=== PATIENT | male | born 1995 | race African-American/Black ===

== ENCOUNTER 2017-03-16 17:30 | Emergency (ER) | payer BC ==
[2017-03-16 18:03] LABS: Hematocrit 35 % (42-52); Hemoglobin 11.5 g/dl (14.0-18.0); Mean Corpuscular HGB Conc 33 g/dl (31-36); Mean Corpuscular Hemoglobin 29 pg (27-31); Mean Corpuscular Volume 88 fL (80-94); Mean Platelet Volume 8 um3 (7.4-10.4); Red Blood Count 3.97 10^6/ul (4.0-5.4); Red Cell Distribution Width 21 % (10.5-15)
[2017-03-16 18:05] LABS: Add Diff/Slide Review? Slide Review Added; Comments Flag Yes
[2017-03-16 18:09] LABS: Urine Bilirubin Negative (Negative); Urine Glucose Negative (Negative); Urine Nitrite Negative (Negative)
[2017-03-16 18:12] LABS: ALT 17 U/L (7-52); Albumin 4.7 g/dL (3.2-5.2); Alkaline Phosphatase 90 U/L (34-104); Blood Urea Nitrogen 14 mg/dL (6-24); CO2 Carbon Dioxide 25 mmol/L (22-32); Calcium 9.8 mg/dL (8.6-10.3); Chloride 100 mmol/L (101-111); EGFR Non-African American 84.7 (>60); Globulin 3.7 g/dL (2-4); Glucose 113 mg/dL (70-100); Sodium 133 mmol/L (133-145); Total Protein 8.4 g/dL (6.4-8.9)
[2017-03-16 18:16] LABS: AST 30 U/L (13-39); Anion Gap 8 mmol/L (2-11)
[2017-03-16 18:23] LABS: Benzodiazepine Urine Screen None Detected (None Detect)
[2017-03-16 18:37] LABS: Acetaminophen < 15 mcg/mL; Alcohol < 10 mg/dL (<10); Salicylate < 2.50 mg/dL (<30)
[2017-03-16 18:47] LABS: TSH (Thyroid Stimulating Horm) 1.45 mcIU/mL (0.34-5.60)
[2017-03-16] MEDS ORDERED: LORazepam TAB(*) 1 MG PO ONE (20:47)
[2017-03-16] MEDS ORDERED: LORazepam TAB(*) 1 MG ONE (20:49)
[2017-03-16 23:17] VITALS: BP 142/67
--- NOTE | 2017-03-16 23:18 | ED ---
Progress - Progress Note Progress Note: pt evaluated by mental health and discharged back to [facility] in stable condition - Consult/PCP Time Called: 20:50 Course/Dx - Diagnoses Provider Diagnoses: Suicidal ideation, Anxiety
--- NOTE | 2017-03-17 08:55 | ED ---
Edelmira Fu Alok, scribed for Nestor Ardon MD on 03/16/17 at 1745 . Psychiatric Complaint - HPI Summary HPI Summary: 21M presents to the ED for MHU evaluation. 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 Pt states these new guidelines are full of unrealistic expectations and he has been continually reprimanded as of late for insignificant infractions which are both increasing his anxiety/depression and his desire to give up on recovery and start using again. Pt states that this recent stress has been making him want to suffocate himself with a plastic bag which he has tried in the past. Pt has h/o depression and anxiety as well as bipolarism. Pt is a former tobacco smoker. Pt currently takes suboxone. - History Of Current Complaint Chief Complaint: EDMentalHealth Time Seen by Provider: 03/16/17 17:35 Hx Obtained From: Patient Onset/Duration: Lasting Days, Still Present Timing: Constant Severity Initially: Moderate Severity Currently: Moderate Character: Depressed, Anxious Aggravating Factor(s): Recent Stress Related History: Positive For: Drug Abuse Counseling Has Suicidal: Reports: Thoughts, With A Plan, Has Prior Attempt(s) Recent Stressor(s): New guildlines at [employer] with unrealistic expectations - Allergies/Home Medications Allergies/Adverse Reactions: Allergies Allergy/AdvReac Type Severity Reaction Status Date / Time No Known Allergies Allergy Verified 03/16/17 17:42 PMH/Surg Hx/FS Hx/Imm Hx Endocrine/Hematology History: Denies: Hx Diabetes Cardiovascular History: Denies: Hx Hypertension Psychiatric History: Reports: Hx Anxiety, Hx Depression, Hx Bipolar Disorder - Family History Known Family History: Negative: Cardiac Disease, Hypertension, Diabetes - Social History Alcohol Use: None Hx Substance Use: Yes Substance Use Type: Reports: Heroin Hx Tobacco Use: Yes Smoking Status (MU): Former Smoker Type: Cigarettes Do You Chew or Dip Tobacco: No Have You Chewed or Dipped Tobacco in the LAST YEAR: No Review of Systems Negative: Fever Positive: Anxious, Depressed All Other Systems Reviewed And Are Negative: Yes Physical Exam - Summary Physical Exam Summary: VITAL SIGNS: Reviewed. GENERAL: Patient is a well-developed and nourished (MALE OR FEMALE) who is lying comfortable in the stretcher. Patient is not in any acute respiratory distress. HEAD AND FACE: No signs of trauma. No ecchymosis, hematomas or skull depressions. No sinus tenderness. EYES: PERRLA, EOMI x 2, No injected conjunctiva, no nystagmus. EARS: Hearing grossly intact. Ear canals and tympanic membranes are within normal limits. MOUTH: Oropharynx within normal limits. NECK: Supple, trachea is midline, no adenopathy, no JVD, no carotid bruit, no c- spine tenderness, neck with full ROM. CHEST: Symmetric, no tenderness at palpation LUNGS: Clear to auscultation bilaterally. No wheezing or crackles. CVS: Regular rate and rhythm, S1 and S2 present, no murmurs or gallops appreciated. ABDOMEN: Soft, non-tender. No signs of distention. No rebound no guarding, and no masses palpated. Bowel sounds are normal. EXTREMITIES: FROM in all major joints, no edema, no cyanosis or clubbing. NEURO: Alert and oriented x 3. No acute neurological deficits. Speech is normal and follows commands. SKIN: Dry and warm PSYCH: Depressed, quiet. Positive for suicidal thoughts with a plan. No homicidal thoughts or plan. No signs of psychosis or pressure speech. No tangential speech. Triage Information Reviewed: Yes Vital Signs On Initial Exam: Initial Vital Signs Temp 98.0 F 03/16/17 17:32 Pulse 90 03/16/17 17:32 Resp 16 03/16/17 17:32 BP 101/45 03/16/17 17:32 Pulse Ox 100 03/16/17 17:32 Vital Signs Reviewed: Yes Diagnostics - Vital Signs Vital Signs Temp Pulse Resp BP Pulse Ox 03/16/17 23:15 98.0 F 74 16 142/67 03/16/17 20:51 19 03/16/17 17:32 98.0 F 90 16 107/57 100 - Laboratory Lab Results: Lab Results 03/16/17 03/16/17 03/16/17 Range/Units 17:40 17:40 18:00 WBC 5.0 (3.5-10.8) 10^3/ul RBC 3.97 L (4.0-5.4) 10^6/ul Hgb 11.5 L (14.0-18.0) g/dl Hct 35 L (42-52) % MCV 88 (80-94) fL MCH 29 (27-31) pg MCHC 33 (31-36) g/dl RDW 21 H (10.5-15) % Plt Count 266 (150-450) 10^3/ul MPV 8 (7.4-10.4) um3 Neut % (Auto) 28.5 L (38-83) % Lymph % (Auto) 54.7 H (25-47) % [place] % (Auto) 11.9 H (1-9) % Eos % (Auto) 3.6 (0-6) % Baso % (Auto) 1.3 (0-2) % Absolute Neuts (auto) 1.4 L (1.5-7.7) 10^3/ul Absolute Lymphs (auto) 2.7 (1.0-4.8) 10^3/ul Absolute Monos (auto) 0.6 (0-0.8) 10^3/ul Absolute Eos (auto) 0.2 (0-0.6) 10^3/ul Absolute Basos (auto) 0.1 (0-0.2) 10^3/ul Absolute Nucleated RBC 0.01 10^3/ul Nucleated RBC % 0.2 Sodium 133 (133-145) mmol/L Potassium 4.0 (3.5-5.0) mmol/L Chloride 100 L (101-111) mmol/L Carbon Dioxide 25 (22-32) mmol/L Anion Gap 8 (2-11) mmol/L BUN 14 (6-24) mg/dL Creatinine 1.08 (0.67-1.17) mg/dL Est GFR ( Amer) 109.0 (>60) Est GFR (Non-Af Amer) 84.7 (>60) BUN/Creatinine Ratio 13.0 (8-20) Glucose 113 H (70-100) mg/dL Calcium 9.8 (8.6-10.3) mg/dL Total Bilirubin 0.40 (0.2-1.0) mg/dL AST 30 (13-39) U/L ALT 17 (7-52) U/L Alkaline Phosphatase 90 (34-104) U/L Total Protein 8.4 (6.4-8.9) g/dL Albumin 4.7 (3.2-5.2) g/dL Globulin 3.7 (2-4) g/dL Albumin/Globulin Ratio 1.3 (1-3) TSH 1.45 (0.34-5.60) mcIU/mL Urine Color Straw Urine Appearance Clear Urine pH 5.0 (5-9) Ur Specific [place] 1.008 L (1.010-1.030) Urine Protein Negative (Negative) Urine Ketones Negative (Negative) Urine Blood Negative (Negative) Urine Nitrate Negative (Negative) Urine Bilirubin Negative (Negative) Urine Urobilinogen Negative (Negative) Ur Leukocyte Esterase Negative (Negative) Urine Glucose Negative (Negative) Salicylates < 2.50 (<30) mg/dL Urine Opiates Screen (None Detect) Acetaminophen < 15 mcg/mL Ur Barbiturates Screen (None Detect) Ur Phencyclidine Scrn (None Detect) Ur Amphetamines Screen (None Detect) U Benzodiazepines Scrn (None Detect) Urine Cocaine Screen (None Detect) U Cannabinoids Screen (None Detect) Serum Alcohol < 10 (<10) mg/dL 03/16/17 Range/Units 18:00 WBC (3.5-10.8) 10^3/ul RBC (4.0-5.4) 10^6/ul Hgb (14.0-18.0) g/dl Hct (42-52) % MCV (80-94) fL MCH (27-31) pg MCHC (31-36) g/dl RDW (10.5-15) % Plt Count (150-450) 10^3/ul MPV (7.4-10.4) um3 Neut % (Auto) (38-83) % Lymph % (Auto) (25-47) % [place] % (Auto) (1-9) % Eos % (Auto) (0-6) % Baso % (Auto) (0-2) % Absolute Neuts (auto) (1.5-7.7) 10^3/ul Absolute Lymphs (auto) (1.0-4.8) 10^3/ul Absolute Monos (auto) (0-0.8) 10^3/ul Absolute Eos (auto) (0-0.6) 10^3/ul Absolute Basos (auto) (0-0.2) 10^3/ul Absolute Nucleated RBC 10^3/ul Nucleated RBC % Sodium (133-145) mmol/L Potassium (3.5-5.0) mmol/L Chloride (101-111) mmol/L Carbon Dioxide (22-32) mmol/L Anion Gap (2-11) mmol/L BUN (6-24) mg/dL Creatinine (0.67-1.17) mg/dL Est GFR ( Amer) (>60) Est GFR (Non-Af Amer) (>60) BUN/Creatinine Ratio (8-20) Glucose (70-100) mg/dL Calcium (8.6-10.3) mg/dL Total Bilirubin (0.2-1.0) mg/dL AST (13-39) U/L ALT (7-52) U/L Alkaline Phosphatase (34-104) U/L Total Protein (6.4-8.9) g/dL Albumin (3.2-5.2) g/dL Globulin (2-4) g/dL Albumin/Globulin Ratio (1-3) TSH (0.34-5.60) mcIU/mL Urine Color Urine Appearance Urine pH (5-9) Ur Specific [place] (1.010-1.030) Urine Protein (Negative) Urine Ketones (Negative) Urine Blood (Negative) Urine Nitrate (Negative) Urine Bilirubin (Negative) Urine Urobilinogen (Negative) Ur Leukocyte Esterase (Negative) Urine Glucose (Negative) Salicylates (<30) mg/dL Urine Opiates Screen None detected (None Detect) Acetaminophen mcg/mL Ur Barbiturates Screen None detected (None Detect) Ur Phencyclidine Scrn None detected (None Detect) Ur Amphetamines Screen None detected (None Detect) U Benzodiazepines Scrn None detected (None Detect) Urine Cocaine Screen None detected (None Detect) U Cannabinoids Screen None detected (None Detect) Serum Alcohol (<10) mg/dL Result Diagrams: 03/16/17 17:40 03/16/17 17:40 Lab Statement: Any lab studies that have been ordered have been reviewed, and results considered in the medical decision making process. Course/Dx - Course Course Of Treatment: 21M presents to the ED for MHU evaluation. 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 Pt states these new guidelines are full of unrealistic expectations and he has been continually reprimanded as of late for insignificant infractions which are both increasing his anxiety/depression and his desire to give up on recovery and start using again. Pt states that this recent stress has been making him want to suffocate himself with a plastic bag which he has tried in the past. Pt has h/o depression and anxiety as well as bipolarism. Pt is a former tobacco smoker. Pt currently takes suboxone. Blood work within nml limits except for slight anemia. Pt is medically cleared for MHU evaluation. Pt is currently awaiting MHU evaluation and will be signed out to Dr. Huo to follow up with psych recommendations. Assessment/Plan: 21M presents to the ED for MHU evaluation. 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 Pt states these new guidelines are full of unrealistic expectations and he has been continually reprimanded as of late for insignificant infractions which are both increasing his anxiety/depression and his desire to give up on recovery and start using again. Pt states that this recent stress has been making him want to suffocate himself with a plastic bag which he has tried in the past. Pt has h/o depression and anxiety as well as bipolarism. Pt is a former tobacco smoker. Pt currently takes suboxone. - Differential Dx/Clinical Impression Differential Diagnosis/HQI/PQRI: Positive: Anxiety, Depression, Suicidal Ideation Provider Diagnosis: Suicidal ideation, Anxiety Discharge - Discharge Plan Condition: Good Disposition: HOME Patient Education Materials: Polysubstance Abuse (ED), Anxiety (ED) Referrals: No Primary Care Phys,NOPCP [Primary Care Provider] - The documentation as recorded by the Edelmira aquino Alok accurately reflects the service I personally performed and the decisions made by me, Nestor Ardon MD.
== END 2017-03-16 23:15 | disposition home or self-care (01) ==
LOC: ED 17:30
DX: R45.851 Suicidal ideations (principal); F41.8 Other specified anxiety disorders; Z87.891 Personal history of nicotine dependence
CPT/HCPCS: 36415; 80053; 80307; 80320; 80329; 81003; 84443; 85025; 99284; A9270-GY; G0480